=== PATIENT | female | born 1955 | race Caucasian/White ===

== ENCOUNTER → 2016-07-25 | Day surgery (SDC) | payer OTHER ==
[~2016-07-25] VITALS: Ht 167.6 cm; Wt 76.4 kg
[~2016-07-25] MED LIST: *morphine SULFATE 8 MG/ML PERIprocedure ONLY ONE; ACETAMINOPHEN 1000 MG/100 ML VIAL IV ONE; ACETAMINOPHEN/HYDROcodone 325 MG/5 MG TAB PO PRN; BUPIVACAINE HCL PF 0.5% 30 ML VIAL ONE; BUPIVACAINE/EPINEPHRINE 0.25% PF 10 ML VIAL ONE; CHLORHEXIDINE GLUCONATE 2 % 1 PACK (2 CLOTHS) TOPICAL PRN; CHLORHEXIDINE GLUCONATE 4% SOLN 120 ML BTL TOPICAL SCH; DEXAMETHASONE SOD PHOS 4 MG/ML VIAL ONE; DO NOT ADM ANY ANTICOAGULANT DRUGS PRN; FAMOTIDINE 20 MG/2 ML VIAL ONE; GENTAMICIN SULFATE 80 MG/2 ML VIAL ONE; INSULIN HUMAN REGULAR 1,000 UNITS/10 ML VIAL SQ PRN; LACTATED RINGER'S 1000 ML INJ 1,000 ML IV ONE; LACTATED RINGER'S 1000 ML IV PRN; METOPROLOL TARTRATE 25 MG TAB PO PRN; MIDAZOLAM HCL 2 MG/2 ML VIAL ONE; MOBI15TA PO; MORPHINE SULFATE 4 MG/ML INJ IV PUSH PRN; NORC5TAB PO; ONDANSETRON HCL 4 MG/2 ML VIAL IV PRN; ONDANSETRON HCL 4 MG/2 ML VIAL IV PUSH ONE; PANT40TA3 PO; POVIDONE IODINE 5% (ANTISEPSIS KIT) 4 APPLICATIONS EACH NARE PRN; PROPOFOL 200 MG/20 ML AMP IV ONE; SODIUM CHLORID 0.9% 500 ML IV PRN; SODIUM CHLORIDE 0.9% FLUSH 10 ML FLUSH IV FLUSH PRN; SODIUM CHLORIDE 0.9% FLUSH 10 ML FLUSH IV FLUSH SCH; TRAZ100T4 PO; VANCOMYCIN 1000 MG/NS 250 ML (for <70 kg) IV SCH; ZYRT10CA PO; ceFAZolin 2 GM PREMIX 50 ML IV SCH; fentaNYL CITRATE 250 MCG/5 ML AMP ONE; traMADol HCL 50 MG TAB PO PRN
[2016-07-25 10:45] VITALS: BP 144/77; PULSE 55; RESP 18; TEMP 97.9; O2SAT 96
--- NOTE | 2016-07-25 14:28 | PD.OP ---
cc: Mal Avila Jr., MD Operative Report Date of Surgery: July 25, 2016 Preoperative Diagnosis: Left leg lipoma Postoperative Diagnosis: Same Procedure: Excision left leg lipoma Anesthesia: Gen. Surgeon: Mal Avila Spud Driller(s): Staff Resident Surgeon: None Operation and Findings: INDICATION FOR PROCEDURE: This a healthy female who has history of a moderate size mass on the left upper leg. MRI revealed the presence of a lipoma. patient now presents for surgical excision. I discussed with the patient at length the potential for substantial perioperative risks involving wound healing complications, infection, nonunion, implant-related complications, primarily as well as perioperative complications from anesthesia, blood loss, need for transfusion, infection, neurovascular injury, DVT and PE. The patient expressed verbal understanding and agreed with my recommendations. DESCRIPTION OF PROCEDURE: The operative site was marked and the planned procedure confirmed with the patient awake prior to administration of anesthesia. The left lower extremity was prepped with Cloraprep and draped in the usual sterile manner. Again, before making the incision, a timeout was done to verify the patients name, side, consent and the procedure with all members of the surgical team. With patient supine, a small incision was made directly over the mass. Dissection was taken down through subcutaneous test tissue. A moderate sized lipoma was found. A small portion of the lipoma was encased in part of the patella tendon. The lipoma was excised all the way up to the level the joint capsule. The joint capsule was not violated. The wound was copiously irrigated. The wounds were closed with 2-0 vicryl in the subcutaneous tissue and 4-0 monocryl at the skin. The patients compartments were soft and the skin was closed. A sterile dressing was applied. The patient left the operating room with good pulses in the foot and stable vital signs. Mal Avila Jr., MD July 25, 2016 14:28
[2016-07-25 16:26] VITALS: BP 116/71; PULSE 59; RESP 16; TEMP 97; O2SAT 94
--- NOTE | 2016-07-26 22:03 | EKG ---
Date Performed: 07/25/2016 Time Performed: 11:47:22 PTAGE: 61 years EKG: SINUS BRADYCARDIA MODERATE INTRAVENTRICULAR CONDUCTION DELAY NONSPECIFIC ST & T-WAVE ABNORM ALITY ABNORMAL ECG NO PREVIOUS TRACING DOCTOR: Lyla Knox Interpretating Date/Time 07/26/2016 21:57:36
== END | disposition home or self-care (01) ==
LOC: HSDC 10:02
PROVIDERS: ATTEND Orthopaedic Surgery
DX: D17.24 Benign lipomatous neoplasm of skin and subcutaneous tissue of left leg (principal); Z01.810 Encounter for preprocedural cardiovascular examination; R94.31 Abnormal electrocardiogram [ECG] [EKG]
CPT/HCPCS: 00400; 27618; 86850; 86900; 86901; 88304; 93005; J0131; J0690; J1100; J1580; J2250; J2270; J2405; J3010; J3370; J7050; J7120

== ENCOUNTER 2017-08-10 19:35 | Emergency (ER) | payer OTHER ==
[~2017-08-10] VITALS: Ht 167.6 cm; Wt 68.0 kg
[~2017-08-10 19:35] MED LIST changes: -*morphine SULFATE 8 MG/ML PERIprocedure ONLY ONE; -ACETAMINOPHEN 1000 MG/100 ML VIAL IV ONE; -ACETAMINOPHEN/HYDROcodone 325 MG/5 MG TAB PO PRN; -BUPIVACAINE HCL PF 0.5% 30 ML VIAL ONE; -BUPIVACAINE/EPINEPHRINE 0.25% PF 10 ML VIAL ONE; -CHLORHEXIDINE GLUCONATE 2 % 1 PACK (2 CLOTHS) TOPICAL PRN; -CHLORHEXIDINE GLUCONATE 4% SOLN 120 ML BTL TOPICAL SCH; -DEXAMETHASONE SOD PHOS 4 MG/ML VIAL ONE; -DO NOT ADM ANY ANTICOAGULANT DRUGS PRN; -FAMOTIDINE 20 MG/2 ML VIAL ONE; -GENTAMICIN SULFATE 80 MG/2 ML VIAL ONE; -INSULIN HUMAN REGULAR 1,000 UNITS/10 ML VIAL SQ PRN; -LACTATED RINGER'S 1000 ML INJ 1,000 ML IV ONE; -LACTATED RINGER'S 1000 ML IV PRN; -METOPROLOL TARTRATE 25 MG TAB PO PRN; -MIDAZOLAM HCL 2 MG/2 ML VIAL ONE; -MORPHINE SULFATE 4 MG/ML INJ IV PUSH PRN; -ONDANSETRON HCL 4 MG/2 ML VIAL IV PRN; -ONDANSETRON HCL 4 MG/2 ML VIAL IV PUSH ONE; -POVIDONE IODINE 5% (ANTISEPSIS KIT) 4 APPLICATIONS EACH NARE PRN; -PROPOFOL 200 MG/20 ML AMP IV ONE; -SODIUM CHLORID 0.9% 500 ML IV PRN; -SODIUM CHLORIDE 0.9% FLUSH 10 ML FLUSH IV FLUSH PRN; -SODIUM CHLORIDE 0.9% FLUSH 10 ML FLUSH IV FLUSH SCH; -VANCOMYCIN 1000 MG/NS 250 ML (for <70 kg) IV SCH; -ceFAZolin 2 GM PREMIX 50 ML IV SCH; -fentaNYL CITRATE 250 MCG/5 ML AMP ONE; -traMADol HCL 50 MG TAB PO PRN
[2017-08-10 20:07] VITALS: BP 147/67; PULSE 87; RESP 20; TEMP 97.8; O2SAT 97
[2017-08-10] MEDS ORDERED: CETI10 (20:39)
[2017-08-10] MEDS ORDERED: NABU1TAB37 PO (20:39)
[2017-08-10] MEDS ORDERED: TRAZ100T10 PO (20:39)
[2017-08-10] MEDS ORDERED: LANS30CA PO (20:39)
[2017-08-10] MEDS ORDERED: PROMETHAZINE INJ 25 MG/ML VIAL IM ONE (20:45)
[2017-08-10] MEDS ORDERED: MORPHINE SULFATE 8 MG/ML INJ IM ONE (20:45)
--- NOTE | 2017-08-10 21:02 | PD ---
HPI Chief Complaint: Pain: Acute or Chronic Time Seen by Provider: 20:27 Travel History International Travel<30 days: No Contact w/Intl Traveler<30days: No Traveled to known affect area: No History of Present Illness HPI 62-year-old white female presents emergency department with complaints of left buttock and left leg pain. She states that she has had trochanteric bursitis in the past. She goes to pain management and gets steroid injections. She had gotten an injection on the 16th of last month. She states that the following day she had increasing pain in her left buttocks with bruising her left thigh. She states that she had significant pain that lasted for over 1 week but it gradually improved. She states the pain had been tolerable up until today. She does not recall doing anything to exacerbate the pain. She states the pain is severe. She denies any recent illness. No nausea vomiting. No abdominal pain. No dysuria, frequency, hematuria. No numbness, tingling or focal weakness. She states that this is similar pain that she had earlier last month but is once again more intense today. The patient is requesting an MRI. She states that she would like to know what is causing her pain. She does not like to take pain medications. 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 [facility] Past Medical History Narrative Medical Trochanteric bursitis Cancer: No Cardiovascular Problems: No Endocrine: No Gastrointestinal Disorders: Yes (GERD) Genitourinary: No Hepatitis: No Hiatal Hernia: Yes Immune Disorder: No Neurologic: No Psychiatric: No Reproductive: No Respiratory: No ?: Not Tubal Ligation: Yes Past Surgical History Abdominal Surgery: No AICD: No Body Medical Devices: NONE Cardiac Surgery: No Ear Surgery: No Endocrine Surgery: No Eye Surgery: No Genitourinary Surgery: No Gynecologic Surgery: Yes (TL) Joint Replacement: No Neurologic Surgery: Yes (CERVICAL LAMINECTOMY) Oral Surgery: No Pacemaker: No Thoracic Surgery: No Other Surgery: Yes Social History Alcohol Use: Yes (occasionally) Tobacco Use: No Substance Use: No Allergies-Medications (Allergen,Severity, Reaction): Coded Allergies: No Known Allergies (Unverified Adverse Reaction, Unknown, 08/10/17) Reported Meds & Prescriptions Reported Meds & Active Scripts Active Robaxin (Methocarbamol) 500 Mg Tab 1,000 Mg PO TID 7 Days Coyanosa (Hydrocodone-Acetaminophen) 5 Mg-325 Mg Tab 1 Tab PO Q6H PRN 3 Days Reported Nabumetone 500 Mg Tab 500 Mg PO DIRECTED Lansoprazole 30 Mg Capdr 30 Mg PO HS Trazodone (Trazodone HCl) 100 Mg Tablet 100 Mg PO HS Cetirizine (Cetirizine HCl) 10 Mg Tab 10 Mg DAILY Review of Systems General / Constitutional: No: Fever Eyes: No: Visual changes HENT: No: Headaches Cardiovascular: No: Chest Pain or Discomfort Respiratory: No: Shortness of Breath Gastrointestinal: No: Abdominal Pain Genitourinary: No: Dysuria Musculoskeletal: Positive: Arthralgias, Limited ROM, Pain, No: Weakness Skin: No Rash Neurologic: No: Weakness Psychiatric: No: Depression Endocrine: No: Polydipsia Hematologic/Lymphatic: No: Easy Bruising Physical Exam Narrative GENERAL: Well-developed, well-nourished in no apparent distress. Nontoxic appearing. HEAD: Normocephalic, atraumatic. EYES: Pupils equal round and reactive. Extraocular motions intact. No scleral icterus. No injection or drainage. ENT: Nose clear. Throat without erythema, tonsillar hypertrophy or exudate. Uvula midline. Airway patent. NECK: Trachea midline. Supple, nontender, moves head freely. No central bony tenderness or spasm. CARDIOVASCULAR: Regular rate and rhythm without murmurs, gallops, or rubs. RESPIRATORY: Clear to auscultation. Breath sounds equal bilaterally. No wheezes , rales, or rhonchi. GASTROINTESTINAL: Abdomen soft, non-tender, nondistended. No hepato-splenomegaly , or palpable masses. No guarding. EXTREMITIES: No clubbing, cyanosis, or edema. No joint tenderness. BACK: No central bony tenderness to palpation of the dorsal lumbar spine. Without deformity. No flank tenderness. Patient complains of pain with palpation over the left buttock in the region of the SI joint and lateral buttocks into the sciatic notch. She has decreased range of motion due to pain. No gross spasm. She has no saddle anesthesia. She has strong equal bilateral pulses in her feet. Normal color, temperature. NEUROLOGICAL: Awake, alert and oriented x 3 .Cranial nerves grossly intact. Motor and sensory grossly within normal limits. Normal speech. Data Data Last Documented VS Vital Signs Date Time Temp Pulse Resp B/P (MAP) Pulse Ox O2 Delivery O2 Flow Rate FiO2 08/10/17 20:07 97.8 87 20 147/67 (93) 97 Orders Orders Morphine Inj (Morphine Inj) (08/10/17 20:45) Promethazine Inj (Phenergan Inj) (08/10/17 20:45) Ed Discharge Order (08/10/17 23:35) Acetamin-Hydrocod 325-5 Mg (Coyanosa 5-325 (08/10/17 23:45) MDM Medical Decision Making Medical Screen Exam Complete: Yes Emergency Medical Condition: Yes Medical Record Reviewed: Yes Differential Diagnosis MDM: High Differential diagnoses: sprain, strain, HNP, nerve or vascular injury, epidural abscess, UTI Narrative Course I contacted MRI department. There are no openings today. They have multiple stent procedures and other procedures ordered for today. They would have to bump someone off schedule if this was an emergent procedure and the need to be done today. This has been relayed to the patient. I have informed the patient that we will attempt to treat her pain today. She will be given morphine 8 mg IM and Phenergan 25 mg IM. I explained to her that an MRI would be more appropriate for her complaints then performing a CT scan. I also informed her that there is a radiation associated with a CT. I see nothing on her exam that indicates an emergent need to have this done today. I have also informed her that if we cannot manage her pain we can admit her for pain control and MRI can be done as an inpatient. Patient once again reiterates that she needs to be at a meeting tomorrow and does not like to take pain medication. I explained to her that we need to treat her as a patient and not treat whether she has an appointment or not. The patient was given morphine 8 mg IM and Phenergan 25 mg IM. The patient had fallen asleep and rested for a time. Patient was reassessed and was getting ready to be discharged when she states that her pain had only improved by 50%. I offered the patient admission to the hospital for further pain control and further diagnostic imaging. The patient has declined this. She states that she would like to have something else for pain. She is given Lortab 5 mg p.o. and to be discharged with a prescription and close follow-up with her doctor. This is sciatica Diagnosis Primary Impression: Sciatica Qualified Codes: M54.32 - Sciatica, left side Patient Instructions: Narcotic given in the ED, General Instructions Departure Forms: Tests/Procedures, Work Release Special Instructions: No work 2 days. Additional Instructions: Rest. Ice for the next 3 days followed by heat . Robaxin and Coyanosa. Follow-up with a primary care doctor in 1-2 days. Outpatient MRI of the lumbar spine.. Return to the ER for emergencies. Med/Other Pt SpecificInfo: Prescription(s) given Scripts Methocarbamol (Robaxin) 500 Mg Tab 1000 MG PO TID for Muscle Spasm for 7 Days, TAB 0 Refills Prov: Miguel Del Toro MD 08/10/17 Hydrocodone-Acetaminophen (Coyanosa) 5 Mg-325 Mg Tab 1 TAB PO Q6H Y for PAIN for 3 Days, #12 TAB 0 Refills Prov: Miguel Del Toro MD 08/10/17 Disposition: 01 DISCHARGE HOME Condition: Stable Gnozalez Amos August 10, 2017 21:02
[2017-08-10] MEDS ORDERED: ROBA500T PO (23:38)
[2017-08-10] MEDS ORDERED: NORC5TAB PO (23:38)
[2017-08-10] MEDS ORDERED: ACETAMINOPHEN/HYDROcodone 325 MG/5 MG TAB PO ONE (23:45)
== END 2017-08-11 00:04 | disposition home or self-care (01) ==
LOC: NEPD 19:35
DX: M54.32 Sciatica, left side (principal)
CPT/HCPCS: 96372; 99283; J2270; J2550